=== PATIENT | male | born 1955 | race Caucasian/White ===

== ENCOUNTER → 2020-09-24 09:35 | Outpatient (BNVA) | payer MEDICARE, SELFPAY | PROVIDERS: Family Provider Family Medicine; PCP Nurse Practitioner Family; Referring Provider Nurse Practitioner Family; Visit Provider Nurse Practitioner Family | DX: N40.1 Benign prostatic hyperplasia with lower urinary tract symptoms (principal); R35.1 Nocturia; Z12.5 Encounter for screening for malignant neoplasm of prostate; R97.20 Elevated prostate specific antigen [PSA] | CPT/HCPCS: 81003; G0103 ==

== ENCOUNTER → 2020-10-12 10:26 | Outpatient (BNVA) | payer MEDICARE, SELFPAY | PROVIDERS: Family Provider Family Medicine; PCP Nurse Practitioner Family; Visit Provider Urology | DX: R97.20 Elevated prostate specific antigen [PSA] (principal); N40.1 Benign prostatic hyperplasia with lower urinary tract symptoms | CPT/HCPCS: 81003; 84153 ==

== ENCOUNTER → 2021-01-14 09:14 | Outpatient (BNVA) | payer MEDICARE, SELFPAY | PROVIDERS: Family Provider Family Medicine; PCP Nurse Practitioner Family; Visit Provider Urology | DX: N40.1 Benign prostatic hyperplasia with lower urinary tract symptoms (principal); R97.20 Elevated prostate specific antigen [PSA] | CPT/HCPCS: 81003; 84153 ==

== ENCOUNTER → 2021-08-06 08:54 | Outpatient (BNVA) | payer MEDICARE, SELFPAY | PROVIDERS: Family Provider Family Medicine; PCP Nurse Practitioner Family; Visit Provider Urology | DX: R97.20 Elevated prostate specific antigen [PSA] (principal); N40.1 Benign prostatic hyperplasia with lower urinary tract symptoms | CPT/HCPCS: 81003; 84153 ==

== ENCOUNTER → 2021-10-10 08:58 | Outpatient (BNVA) | payer MEDICARE, SELFPAY | PROVIDERS: Family Provider Family Medicine; PCP Nurse Practitioner Family; Visit Provider Urology | DX: R97.20 Elevated prostate specific antigen [PSA] (principal); N40.1 Benign prostatic hyperplasia with lower urinary tract symptoms | CPT/HCPCS: 81003; 84153 ==

== ENCOUNTER → 2022-07-01 08:19 | Outpatient (BNVA) | payer MEDICARE, SELFPAY | PROVIDERS: Family Provider Family Medicine; PCP Nurse Practitioner Family; Visit Provider Urology | DX: N40.1 Benign prostatic hyperplasia with lower urinary tract symptoms (principal); R97.20 Elevated prostate specific antigen [PSA] | CPT/HCPCS: 51798; 81003; 99213 ==

== ENCOUNTER 2023-02-23 09:00 | Outpatient (CLI) | payer MEDICARE, SELFPAY | END 2023-02-23 09:01 | disposition home or self-care (01) | LOC: SLEEP 02-24 10:51 | PROVIDERS: Family Provider Family Medicine; PCP Nurse Practitioner Family; Visit Provider Internal Medicine | DX: G47.10 Hypersomnia, unspecified (principal) | CPT/HCPCS: G0399 ==

== ENCOUNTER → 2023-04-22 08:34 | Outpatient (BNVA) | payer MEDICARE, SELFPAY | PROVIDERS: Family Provider Family Medicine; PCP Nurse Practitioner Family; Visit Provider Nurse Practitioner Family | DX: Z85.828 Personal history of other malignant neoplasm of skin (principal); L57.0 Actinic keratosis; L82.1 Other seborrheic keratosis; L57.8 Other skin changes due to chronic exposure to nonionizing radiation; D22.5 Melanocytic nevi of trunk; L81.4 Other melanin hyperpigmentation; L82.0 Inflamed seborrheic keratosis; L56.5 Disseminated superficial actinic porokeratosis (DSAP) | CPT/HCPCS: 17004; 17110; 99213 ==

== ENCOUNTER 2023-05-21 08:16 | Outpatient (CLI) | payer MEDICARE, SELFPAY ==
[2023-05-21 08:50] LABS: Basophils # 0.1 10^3/uL (0.0-0.1); Basophils % 0.7 %; Eosinophils # 0.2 10^3/uL (0.0-0.8); Eosinophils % 2.3 %; Hematocrit 41.6 % (37-53); Lymphocytes # 2.3 10^3/uL (0.8-4.8); Lymphocytes % 32.6 %; Mean Corpuscular HGB Conc 33.9 g/dL (30-55); Mean Corpuscular Hemoglobin 27.6 pg (27-33); Mean Corpuscular Volume 81.6 fl (82-101); Mean Platelet Volume 10.7 fL (7.4-10.4); Monocytes # 0.4 10^3/uL (0.2-0.9); Monocytes % 5.8 %; Neutrophils # 4.11 10^3/uL (1.8-7.7); Neutrophils % 58.3 %; Nucleated Red Blood Cells % 0 %; Platelet Count 186 10^3/cmm (157-399); Red Cell Distribution Width 13.2 % (12.1-15.1); White Blood Count 7.05 10^3/uL (3.29-11.43)
[2023-05-21 09:39] LABS: Alanine Aminotransferase 18 U/L (0-41); Albumin Level 4.5 g/dL (3.5-5.2); Alkaline Phosphatase 90 U/L (40-130); Anion Gap 15.2 (5-19); Aspartate Amino Transferase 13 U/L (0-40); Blood Urea Nitrogen 19 mg/dL (8-23); Carbon Dioxide 25 mmol/L (22-29); Chloride 106 mmol/L (98-107); Chol HDL Ratio 3.06 mg/dL (1.0-5.00); Cholesterol 98 mg/dL (0-200); Globulin 2.5 g/dL (1.3-4.6); Glomerular Filtration Rate 59.9 mL/min (90-130); Glucose 150 mg/dL (65-115); HDL Cholesterol 32 mg/dL (60-100); LDL Cholesterol Calculated 52 mg/dL (50-129); LDL HDL Ratio 1.63 RATIO (0.00-3.22); Osmolality Calculated 299 mOsm/kg (285-295); Potassium 4.2 mmol/L (3.5-5.1); Sodium 142 mmol/L (136-145); Triglycerides 69 mg/dL (0-150)
[2023-05-21 09:43] LABS: Estmated Average Glucose 134; Hemoglobin A1C 6.3 % (4.0-6.0)
== END 2023-05-21 08:17 | disposition home or self-care (01) ==
PROVIDERS: PCP Internal Medicine; Visit Provider Internal Medicine
DX: E11.9 Type 2 diabetes mellitus without complications (principal); R97.20 Elevated prostate specific antigen [PSA]; E78.5 Hyperlipidemia, unspecified
CPT/HCPCS: 80053; 80061; 83036; 84153; 85025

== ENCOUNTER 2023-10-17 17:39 | Emergency (ER) | payer MEDICARE, SELFPAY ==
[2023-10-17] VITALS (7 sets, daily range): BP systolic 129–159; BP diastolic 74–77; PULSE 68–81; RESP 16–21; TEMP 36.6; O2SAT 91–97; BMI 29.2
--- NOTE | 2023-10-17 17:55 | USR_ITS ---
PROCEDURE INFORMATION: Exam: US Abdomen, Limited; Right Upper Quadrant Exam date and time: 10/17/2023 6:21 PM Age: 68 years old Clinical indication: Abdominal pain; Acute; Additional info: Right upper quadrant pain, concern for cholecystitis TECHNIQUE: Imaging protocol: Real time ultrasound of the abdomen with image documentation. Limited exam focused on the right upper quadrant. COMPARISON: No relevant prior studies available. FINDINGS: Liver: Unremarkable. Gallbladder: Cholelithiasis without gallbladder wall thickening or pericholecystic fluid. Negative sonographic Souza's sign, as per the market research manager. Biliary ducts: Normal. No stones. No dilation. Pancreas: Unremarkable as visualized. Right kidney: No mass. No definite stones. No hydronephrosis. US/US gall bladder [id number] IMPRESSION: Cholelithiasis without sonographic evidence of acute cholecystitis.
--- NOTE | 2023-10-17 17:56 | ECG_ITS ---
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 Measurements Intervals [place] Rate: 73 P: 41 ME: 198 QRS: -12 QRSD: 101 T: 50 QT: 422 QTc: 465 Interpretive Statements SINUS RHYTHM NONSPECIFIC T-WAVE ABNORMALITY No previous ECG available for comparison Electronically Signed On 10-18-2023 20:48:23 CDT by Victorino Eid M.D. [id number]
[2023-10-17 18:10] LABS: Basophils % 0.2 %; Eosinophils % 0.1 %; Lymphocytes # 1.3 10^3/uL (0.8-4.8); Lymphocytes % 6.7 %; Mean Corpuscular Hemoglobin 28.7 pg (27-33); Mean Platelet Volume 10.1 fL (7.4-10.4); Monocytes # 0.9 10^3/uL (0.2-0.9); Neutrophils # 16.53 10^3/uL (1.8-7.7); Neutrophils % 87.4 %; Nucleated Red Blood Cells % 0 %; Platelet Count 195 10^3/cmm (157-399); Red Blood Count 5.12 10^6/uL (3.85-5.65); Red Cell Distribution Width 13.2 % (12.1-15.1); White Blood Count 18.91 10^3/uL (3.29-11.43)
--- NOTE | 2023-10-17 18:13 | ED_ITS ---
HPI - Abdominal Pain 2 General: Chief Complaint: Abdominal Pain Stated Complaint: chest pain, abd pain Time Seen by Provider: 10/17/23 17:40 History of Present Illness: 68-year-old man with history of coronary artery disease status post CABG, hypertension, hyperlipidemia, BPH who presents to the emergency room with right upper quadrant abdominal pain with some nausea. No vomiting. Radiates to his back. Has been present for about 6 hours now. He has had no abdominal surgeries. He has had a CABG in the past. No known fever. He says pain is fairly severe at this time. Review of Systems 2 Narrative: Constitutional symptoms: Negative except as documented in HPI. Skin symptoms: Negative except as documented in HPI. Eye symptoms: Negative except as documented in HPI. ENMT symptoms: Negative except as documented in HPI. Respiratory symptoms: Negative except as documented in HPI. Cardiovascular symptoms: Negative except as documented in HPI. Gastrointestinal symptoms: Negative except as documented in HPI. Genitourinary symptoms: Negative except as documented in HPI. Musculoskeletal symptoms: Negative except as documented in HPI. Neurologic symptoms: Negative except as documented in HPI. Psychiatric symptoms: Negative except as documented in HPI. Endocrine symptoms: Negative except as documented in HPI. PFS ED 2 PFSH: Medical History (Updated 10/17/23 @ 20:27 by Keeley Elena MD) ASHD (arteriosclerotic heart disease) Insomnia Bilateral plantar fasciitis Cataract Dyslipidemia Hypertension Diabetes Elevated PSA BPH loc w urin obs/LUTS Surgical History Hx of CABG Status post bilateral LASIK surgery Family History Mother Hypertension Other CAD (coronary artery disease) Social History Smoking and tobacco/nicotine status: never used tobacco/nicotine Alcohol intake: never Marital status: Current occupational status: employed Physical Exam 2 Narrative: EXAM NARRATIVE: General: Alert, no acute distress. Skin: Warm, dry. Head: Normocephalic, atraumatic. Neck: Supple, trachea midline. Eye: Extraocular movements are intact. Ears, nose, mouth and throat: mucosa moist. Cardiovascular: Regular, Normal peripheral perfusion. Respiratory: Lungs are clear to auscultation, respirations are non-labored, breath sounds are equal, Symmetrical chest wall expansion. Gastrointestinal: Soft, moderate right upper quadrant tenderness to palpation, Non distended, Normal bowel sounds. Musculoskeletal: Normal ROM, no deformity. Neurological: Alert and oriented, No focal neurological deficit observed. Psychiatric: Cooperative, appropriate mood & affect. Course 2 Vital Signs: Vital signs: Vital Signs Temperature 97.9 F 10/17/23 17:46 Pulse Rate 68 10/17/23 18:47 Respiratory Rate 17 10/17/23 19:46 Blood Pressure 129/76 10/17/23 18:47 Pulse Oximetry 94 10/17/23 19:46 Oxygen Delivery Me thod Room Air 10/17/23 17:46 MDM - Abdominal Pain Medical Decision Making Differential diagnosis for patient presenting with right upper quadrant abdominal pain including but not limited to and based on the above HPI, review of systems and physical exam: Cholelithiasis or cholecystitis. Hepatitis. Diverticulitis. Constipation. Ureterolithiasis. Urinary tract infection. Appendicitis. colitis. small bowel obstruction. crohn's flare. pancreatitis. gastritis. peptic ulcer. Aortic disection. Workup including imaging and lab work replaced based on the above differential, history and exam to evaluate differential diagnosis Lab Review: Laboratory results were reviewed and interpreted by myself the emergency room physician. Patient has some significant leukocytosis with a white count of 18,000. Hemoglobin is stable at 14. BUN and creatinine are up at 25 and 1.4. Previous creatinine was 1.2. His blood sugars are up a bit at 329. Giving some fluids. The most note on his labs is that he has a transaminitis with AST and ALT in the 300s and a T. bili greater than 3. Ultrasound of the gallbladder: FINDINGS: Liver: Unremarkable. Gallbladder: Cholelithiasis without gallbladder wall thickening or pericholecystic fluid. Negative sonographic Souza's sign, as per the infant babysitter. Biliary ducts: Normal. No stones. No dilation. Pancreas: Unremarkable as visualized. Right kidney: No mass. No definite stones. No hydronephrosis. IMPRESSION: Cholelithiasis without sonographic evidence of acute cholecystitis. Consultation: I spoke with general surgery at [facility] Dr. Saleh. With the patient having a probable common bile duct stone he recommends medicine admission with gastroenterology consultation. We do not have gastroenterology here so is why had called [facility]. Reexamination: Patient has some improvement in pain but it has recurred at least once since has been here. He is required some Dilaudid for this. No altered mental status. No increased work of breathing. Pain is still restricted just to his right upper quadrant. Lab Data 10/17/23 18:01 10/17/23 18:01 Labs/Radiology: Radiology Impressions Gallbladder Ultrasound 10/17/23 17:55 IMPRESSION: Cholelithiasis without sonographic evidence of acute cholecystitis. Laboratory Results WBC 18.91 10^3/uL (3.29-11.43) H 10/17/23 18:01 RBC 5.12 10^6/uL (3.85-5.65) 10/17/23 18:01 Hgb 14.70 g/dL (11.27-16.99) 10/17/23 18: Hct 42.0 % (37-53) 10/17/23 18:01 MCV 82.0 fl (82-101) 10/17/23 18: MCH 28.7 pg (27-33) 10/17/23 18: MCHC 35.0 g/dL (30-55) 10/17/23 18:01 RDW 13.2 % (12.1-15.1) 10/17/23 18: Plt Count 195 10^3/cmm (157-399) 10/17/23 18:01 MPV 10.1 fL (7.4-10.4) 10/17/23 18: Neut % (Auto) 87.4 % 10/17/23 18: Lymph % (Auto) 6.7 % 10/17/23 18: Brooks % (Auto) 5.0 % 10/17/23 18:01 Eos % (Auto) 0.1 % 10/17/23 18:01 Baso % (Auto) 0.2 % 10/17/23 18:01 Neut # (Auto) 16.53 10^3/uL (1.8-7.7) H 10/17/23 18:01 Lymph # (Auto) 1.3 10^3/uL (0.8-4.8) 10/17/23 18:01 Brooks # (Auto) 0.9 10^3/uL (0.2-0.9) 10/17/23 18:01 Eos # (Auto) 0.0 10^3/uL (0.0-0.8) 10/17/23 18:01 Baso # (Auto) 0.0 10^3/uL (0.0-0.1) 10/17/23 18:01 Nucleated RBC % (auto) 0 % 10/17/23 18:01 Nucleated RBCs # 0.0 /100WBC 10/17/23 18:01 Sodium 140 mmol/L (136-145) 10/17/23 18:01 Potassium 3.7 mmol/L (3.5-5.1) 10/17/23 18:01 Chloride 102 mmol/L (98-107) 10/17/23 18:01 Carbon Dioxide 25 mmol/L (22-29) 10/17/23 18:01 Anion Gap 16.7 (5-19) 10/17/23 18:01 BUN 25 mg/dL (8-23) H 10/17/23 18:01 Creatinine 1.4 mg/dL (0.7-1.2) H 10/17/23 18:01 GFR Calculation 50.1 mL/min (90-130) L 10/17/23 18:01 Glucose 329 mg/dL (65-115) H 10/17/23 18:01 Calculated Osmolality 307 mOsm/kg (285-295) H 10/17/23 18:01 Calcium 10.3 mg/dL (8.5-10.5) 10/17/23 18:01 Total Bilirubin 3.2 mg/dL (0.15-1.2) H 10/17/23 18:01 AST 287 U/L (0-40) H 10/17/23 18:01 ALT 281 U/L (0-41) H 10/17/23 18:01 Alkaline Phosphatase 231 U/L (40-130) H 10/17/23 18:01 C-Reactive Protein 3.0 mg/L (0.0-4.9) 10/17/23 18:01 Total Protein 7.0 g/dL (6.6-8.7) 10/17/23 18:01 Albumin 4.1 g/dL (3.5-5.2) 10/17/23 18:01 Globulin 2.9 g/dL (1.3-4.6) 10/17/23 18:01 Lipase > 46616 U/L (13-60) H 10/17/23 18:01 All radiology interpretation(s) finalized by discharge Other Data Assessment and plan: Cholelithiasis Probable common bile duct stone Transaminitis Hyperbilirubinemia -IV Dilaudid x 2 doses. IV Zofran. -Patient will require transfer for gastroenterology intervention for probable bile duct stone. -Given the patient's white count of 18,000 and giving Zosyn without inflammation of the gallbladder wall at this time. Likely does have early cholecystitis Hyperglycemia -Blood sugar over 300. Fluids are being given. Known diabetes Dehydration Acute on chronic renal insufficiency -Fluids are being given. Creatinine is up to 1.4 as compared to previous at 1.2. -I discussed the patient with Dr. Katharine Engel at [facility] who is excepted the patient to a floor bed. - Discussed findings and plan with patient. Answered any questions. - All laboratory values were reviewed and interpreted personally by myself, the ER physician - All imaging was reviewed and interpreted personally by myself, the ER physician. - Evaluation and treatment of this problem were appropriate in the emergency setting Discharge Plan Discharge Patient Disposition: Xfer Short-Term Hosp Clinical Impression: Biliary calculi, common bile duct, Cholelithiasis, Transaminitis, Hyperbilirubinemia, Dehydration, Acute on chronic renal insufficiency, Hyperglycemia, Type 2 diabetes mellitus Condition: Stable Referrals: Milena Cho MD [Primary Care Provider] - Coding Level of Care Code ED Install And Repair Technician for Alison Lobato
[2023-10-17] MEDS: ondansetron 2 mg/ML SDV 2 mL 8 MG IVP (18:23)
[2023-10-17] MEDS: HYDROmorphone 1 mg/mL INJ 1 mL IVP ×3 (18:25→22:03)
[2023-10-17 18:28] LABS: Alanine Aminotransferase 281 U/L (0-41); Albumin Level 4.1 g/dL (3.5-5.2); Alkaline Phosphatase 231 U/L (40-130); Anion Gap 16.7 (5-19); Aspartate Amino Transferase 287 U/L (0-40); Blood Urea Nitrogen 25 mg/dL (8-23); Calcium 10.3 mg/dL (8.5-10.5); Carbon Dioxide 25 mmol/L (22-29); Chloride 102 mmol/L (98-107); Creatinine Clr Calc Pharmacy 59.5489; Globulin 2.9 g/dL (1.3-4.6); Glomerular Filtration Rate 50.1 mL/min (90-130); Glucose 329 mg/dL (65-115); Osmolality Calculated 307 mOsm/kg (285-295); Potassium 3.7 mmol/L (3.5-5.1); Sodium 140 mmol/L (136-145); Total Bilirubin 3.2 mg/dL (0.15-1.2)
[2023-10-17 19:00] LABS: Lipase > 11501 U/L (13-60)
[2023-10-17] MEDS: sodium chloride 0.9% 1,000 ML 999 ML IV (19:45)
[2023-10-17] MEDS: piperacillin-tazobactam 4.5 GM in sodium chloride 0.9% (plus) 50 ML IV (19:47)
--- NOTE | 2023-10-17 21:40 | PC.NURSE ---
Patient requesting pain medication. Rates pain at 7/10 at this time. Per verbal order Dr nance- give 1mg ivp dilaudid and can repeat when ems arrives for transfer. RBVO and placed.
[2023-10-18] VITALS: BP 144/88; PULSE 82; RESP 14; O2SAT 95
[2023-10-18 00:30] VITALS: BP 157/80; PULSE 86; RESP 16; O2SAT 96
[2023-10-18] MEDS: ketorolac 30 mg/mL INJ IVP (00:32)
[2023-10-18 00:35] VITALS: RESP 16
[2023-10-18] MEDS: HYDROmorphone 1 mg/mL INJ 1 mL IVP (00:35)
[2023-10-18 01:45] VITALS: RESP 16
[2023-10-18] MEDS: morphine 4 mg/mL SDV 1 mL IVP (01:45)
[2023-10-18 01:49] VITALS: BP 146/68; O2SAT 97
[2023-10-18] MEDS: ondansetron 2 mg/ML SDV 2 mL 4 MG IVP (01:49)
== END 2023-10-18 01:53 | disposition short-term general hospital (02) ==
PROVIDERS: Emergency Provider Emergency Medicine; PCP Internal Medicine
DX: K80.70 Calculus of gallbladder and bile duct without cholecystitis without obstruction (principal); R74.01 Elevation of levels of liver transaminase levels; E80.6 Other disorders of bilirubin metabolism; E86.0 Dehydration; E11.22 Type 2 diabetes mellitus with diabetic chronic kidney disease; I12.9 Hypertensive chronic kidney disease with stage 1 through stage 4 chronic kidney disease, or unspecified chronic kidney disease; N18.9 Chronic kidney disease, unspecified; E11.65 Type 2 diabetes mellitus with hyperglycemia; Z79.85 Long-term (current) use of injectable non-insulin antidiabetic drugs; E78.5 Hyperlipidemia, unspecified; Z95.1 Presence of aortocoronary bypass graft
CPT/HCPCS: 76705; 80053; 83690; 85025; 86140; 93005; 96365; 96375; 96376; 99285; J1170; J1885; J2270; J2405; J2543; J7030

== ENCOUNTER 2023-11-02 09:58 | Outpatient (CLI) | payer MEDICARE, SELFPAY ==
[2023-11-02 10:40] LABS: Basophils % 0.1 %; Eosinophils % 0.1 %; Lymphocytes # 0.9 10^3/uL (0.8-4.8); Lymphocytes % 5.9 %; Mean Corpuscular HGB Conc 33.4 g/dL (30-55); Mean Corpuscular Hemoglobin 28.3 pg (27-33); Mean Corpuscular Volume 84.5 fl (82-101); Mean Platelet Volume 10.3 fL (7.4-10.4); Monocytes # 0.6 10^3/uL (0.2-0.9); Monocytes % 4.1 %; Nucleated Red Blood Cells % 0 %; Platelet Count 286 10^3/cmm (157-399); Red Blood Count 4.14 10^6/uL (3.85-5.65); Red Cell Distribution Width 13.3 % (12.1-15.1); White Blood Count 15.71 10^3/uL (3.29-11.43)
[2023-11-02 11:12] LABS: Alanine Aminotransferase 37 U/L (0-41); Alkaline Phosphatase 158 U/L (40-130); Anion Gap 13.4 (5-19); Aspartate Amino Transferase 17 U/L (0-40); Blood Urea Nitrogen 20 mg/dL (8-23); Calcium 9.8 mg/dL (8.5-10.5); Carbon Dioxide 24 mmol/L (22-29); Chloride 101 mmol/L (98-107); Globulin 3.1 g/dL (1.3-4.6); Glomerular Filtration Rate 54.6 mL/min (90-130); Glucose 279 mg/dL (65-115); Lipase 61 U/L (13-60); Osmolality Calculated 291 mOsm/kg (285-295); Potassium 4.4 mmol/L (3.5-5.1); Sodium 134 mmol/L (136-145); Total Bilirubin 0.7 mg/dL (0.15-1.2); Total Protein 6.1 g/dL (6.6-8.7)
[2023-11-02 11:15] LABS: Digoxin 1.3 ng/mL (0.6-1.2)
[2023-11-02 11:23] LABS: Erythrocyte Sedimentation Rate 14 mm/hr (0-10)
[2023-11-03 07:10] LABS: Amylase 63 U/L (21-101)
== END 2023-11-02 09:59 | disposition home or self-care (01) ==
LOC: LAB 10:00
PROVIDERS: PCP Internal Medicine; Visit Provider Internal Medicine
DX: Z51.81 Encounter for therapeutic drug level monitoring (principal)
CPT/HCPCS: 36415; 80053; 80162; 82150; 83690; 85025; 85651

== ENCOUNTER 2023-11-03 04:00 | Emergency (ER) | payer MEDICARE, SELFPAY ==
[2023-11-03] VITALS (12 sets, daily range): BP systolic 117–149; BP diastolic 59–75; PULSE 68–102; RESP 16–29; TEMP 36.6–38.2; O2SAT 92–98; BMI 29.1
--- NOTE | 2023-11-03 04:07 | W.ED.ARRPALP ---
Documented by User: Eber Flanagan DO 11/03/23 05:47 HPI - Arrhythmia/Palpitations General: Chief Complaint: Fever Stated Complaint: feeling flushed Time Seen by Provider: 11/03/23 04:06 History of Present Illness: Patient presents to the ER with complaints of feeling flushed and having a irregular heart rate. EMS stated heart rate was about 100 1020 beats a minute irregularly in A-fib with RVR type pattern. Patient says he started feeling flushed when he woke up. Patient was just released from [place] about a week ago on 10/24 for diagnosis of pancreatitis with reactive dilation of the biliary system and improving hepatorenal syndrome. He was on Zosyn the entire time he was in the hospital and sent home with 3 days of Augmentin. Patient developed A-fib and CHF while he was in the hospital down there and they did not remove his gallbladder. Patient went home with medicine changes. Dr. Cherry ran labs on the patient yesterday through [email or web address] labs. Patient is currently on Eliquis for A-fib. Patient's family said they started him on Lasix in the hospital and he is currently down 29 pounds. Review of Systems General: Reports: 10 or more systems reviewed and unremarkable except in HPI and below PFSH ED PFSH: Medical History ASHD (arteriosclerotic heart disease) Insomnia Bilateral plantar fasciitis Cataract Dyslipidemia Hypertension Diabetes Elevated PSA BPH loc w urin obs/LUTS Surgical History Hx of CABG Status post bilateral LASIK surgery Family History Mother Hypertension Other CAD (coronary artery disease) Social History Smoking and tobacco/nicotine status: never used tobacco/nicotine Alcohol intake: never Marital status: Current occupational status: employed Physical Exam Const: COMMON NORMALS: no acute distress, average body habitus, patient oriented x3, no limitations, healthy appearing, alert and well nourished HENMT: COMMON NORMALS: normocephalic, atraumatic, hearing grossly normal bilaterally, external ears normal, Normal external nose present, moist oral mucous membranes and oropharynx normal HEAD & SCALP: normocephalic and atraumatic NOSE: Normal external nose present EXTERNAL EAR: Yes external ears normal Neck/C-Spine: COMMON NORMALS: no JVD Chest: COMMONS NORMALS: normal inspection of the chest and normal palpation of entire chest wall Resp: COMMON NORMALS: normal respiratory effort, No retractions, No use of accessory muscles and clear to auscultation bilaterally AUSCULTATION: clear to auscultation bilaterally Cardio: COMMON NORMALS: no JVD, regular rate, regular rhythm, S1 normal heart sound present, S2 normal heart sound present, No gallops present (Cardio), No clicks present (Cardio), No murmurs present (Cardio) and No rub (Cardio) RATE: regular rate RHYTHM: regular rhythm HEART SOUNDS: S1 normal heart sound present and S2 normal heart sound present GI: COMMON NORMALS: Normal to inspection, nondistended, normoactive bowel sounds present, Soft to palpation and No hepatosplenomegaly present; negative for non-tender (Tender to palpate over right upper quadrant) PALPATION: Yes Soft to palpation and Yes No hepatosplenomegaly present Neuro: COMMON NORMALS: patient oriented x3 SENSORIUM/ORIENTATION: Yes alert Course Vital Signs: Vital signs: Vital Signs Temperature 97.8 F 11/03/23 07:41 Pulse Rate 84 11/03/23 06:46 Respiratory Rate 23 H 11/03/23 06:46 Blood Pressure 122/66 11/03/23 06:46 Pulse Oximetry 93 11/03/23 06:46 Oxygen Delivery Me thod Room Air 11/03/23 05:50 MDM - Arrhythmia/Palpitations Medical Decision Making Talking to the daughters Dr. Cherry raise his metoprolol yesterday from 12.525 twice daily, patient is on Eliquis, patient has appointment with the legal transcriptionist down in [place] but not until the we will try to get him appointment for her sooner. Patient's white count is mildly elevated at 18.3 yesterday was approximately 15, chest x-ray was negative as well as urine, liver enzymes and pancreas enzymes are normal. We will discharge the patient and patient should follow-up with his PCP on an as-needed basis. Differential Diagnosis Likely palpitations and artial fibrillation Medical Records I reviewed the patient's medical records. Lab Data I reviewed the patient's lab results. 11/03/23 04:09 11/03/23 04:09 Radiology Impressions Chest X-Ray 11/03/23 04:11 IMPRESSION: 1. Left basilar discoid atelectasis and/or scarring. 2. No acute findings. Laboratory Results WBC 18.30 10^3/uL (3.29-11.43) H 11/03/23 04:09 RBC 4.02 10^6/uL (3.85-5.65) 11/03/23 04:09 Hgb 11.40 g/dL (11.27-16.99) 11/03/23 04:09 Hct 33.0 % (37-53) L 11/03/23 04:09 MCV 82.1 fl (82-101) 11/03/23 04:09 MCH 28.4 pg (27-33) 11/03/23 04:09 MCHC 34.5 g/dL (30-55) 11/03/23 04:09 RDW 13.5 % (12.1-15.1) 11/03/23 04:09 Plt Count 284 10^3/cmm (157-399) 11/03/23 04:09 MPV 10.5 fL (7.4-10.4) H 11/03/23 04:09 Neut % (Auto) 96.0 % 11/03/23 04:09 Lymph % (Auto) 1.7 % 11/03/23 04:09 [place] % (Auto) 1.6 % 11/03/23 04:09 Eos % (Auto) 0.0 % 11/03/23 04:09 Baso % (Auto) 0.1 % 11/03/23 04:09 Neut # (Auto) 17.57 10^3/uL (1.8-7.7) H 11/03/23 04:09 Lymph # (Auto) 0.3 10^3/uL (0.8-4.8) L 11/03/23 04:09 [place] # (Auto) 0.3 10^3/uL (0.2-0.9) 11/03/23 04:09 Eos # (Auto) 0.0 10^3/uL (0.0-0.8) 11/03/23 04:09 Baso # (Auto) 0.0 10^3/uL (0.0-0.1) 11/03/23 04:09 Nucleated RBC % (auto) 0 % 11/03/23 04:09 Nucleated RBCs # 0.0 /100WBC 11/03/23 04:09 PT 18.80 SECONDS (12.1-14.9) H 11/03/23 04:09 INR 1.52 (0.8-1.2) H 11/03/23 04:09 Sodium 131 mmol/L (136-145) L 11/03/23 04:09 Potassium 3.8 mmol/L (3.5-5.1) 11/03/23 04:09 Chloride 99 mmol/L (98-107) 11/03/23 04:09 Carbon Dioxide 18 mmol/L (22-29) L 11/03/23 04:09 Anion Gap 17.8 (5-19) 11/03/23 04:09 BUN 21 mg/dL (8-23) 11/03/23 04:09 Creatinine 1.4 mg/dL (0.7-1.2) H 11/03/23 04:09 GFR Calculation 50.1 mL/min (90-130) L 11/03/23 04:09 Glucose 331 mg/dL (65-115) H 11/03/23 04:09 Calculated Osmolality 288 mOsm/kg (285-295) 11/03/23 04:09 Lactic Acid 2.4 mmol/L (0.5-2.2) H 11/03/23 04:26 Lactic Acid (Sepsis) 1.4 mmol/L (0.5-2.2) 11/03/23 06:32 Calcium 10.0 mg/dL (8.5-10.5) 11/03/23 04:09 Magnesium 1.5 mg/dL (1.7-2.3) L 11/03/23 04:09 Total Bilirubin 1.1 mg/dL (0.15-1.2) 11/03/23 04:09 AST 11 U/L (0-40) 11/03/23 04:09 ALT 28 U/L (0-41) 11/03/23 04:09 Alkaline Phosphatase 135 U/L (40-130) H 11/03/23 04:09 Troponin T Baseline 33 ng/L (0-15) H 11/03/23 04:09 Troponin T 120 Minute 52.96 ng/L (0-15) H 11/03/23 05:50 Delta Troponin T 19.96 ABS# (0-10) H* 11/03/23 05:50 NT-Pro-B Natriuret Pep 2379 pg/mL (0-125) H 11/03/23 04:09 Total Protein 6.0 g/dL (6.6-8.7) L 11/03/23 04:09 Albumin 2.9 g/dL (3.5-5.2) L 11/03/23 04:09 Globulin 3.1 g/dL (1.3-4.6) 11/03/23 04:09 Lipase 48 U/L (13-60) 11/03/23 04:09 Procalcitonin 0.70 ng/mL (0-0.5) H 11/03/23 04:09 Urine Color Yellow (Yellow) 11/03/23 04:15 Urine Appearance Clear (CLEAR) 11/03/23 04:15 Urine pH 5 (5-7) 11/03/23 04:15 Ur Specific [place] 1.015 (1.005-1.030) 11/03/23 04:15 Urine Protein 2+ (Negative) H 11/03/23 04:15 Urine Glucose (UA) 4+ (Normal) H 11/03/23 04:15 Urine Ketones Negative (Negative) 11/03/23 04:15 Urine Blood 2+ (Negative) H 11/03/23 04:15 Urine Nitrate Negative (Negative) 11/03/23 04:15 Urine Bilirubin Neg (Negative) 11/03/23 04:15 Urine Urobilinogen Neg mg/dL (Negative) 11/03/23 04:15 Ur Leukocyte Esterase Negative (Negative) 11/03/23 04:15 Urine RBC 0-4 /hpf (0-2) H 11/03/23 04:15 Urine WBC 0-4 /hpf (0-5) H 11/03/23 04:15 Ur Squamous Epith Cells None /hpf (0-5) 11/03/23 04:15 Amorphous Sediment Not Reportable 11/03/23 04:15 Urine Bacteria Trace /hpf (NONE) 11/03/23 04:15 Urine Mucus 1+ /hpf 11/03/23 04:15 Digoxin 0.3 ng/mL (0.6-1.2) L 11/03/23 04:09 Influenza Type A Ag negative (Negative) 11/03/23 04:26 Influenza Type B Ag negative (Negative) 11/03/23 04:26 SARS-CoV-2 Ag (Rapid) negative (Negative) 11/03/23 04:26 All radiology interpretation(s) finalized by discharge EKG Data EKG 1: I personally reviewed and interpreted this EKG as follows: EKG interpretation date: 11/03/23 EKG interpretation time: 04: Interpretation: Ventricular 113 beats minute, QRS duration 90, QTc of 425, A-fib with RVR, Other EKG comments: Chest X-Ray 11/03/23 04:11 IMPRESSION: 1. Left basilar discoid atelectasis and/or scarring. 2. No acute findings. Discharge Plan Discharge Patient Disposition: Admitted As Inpatient Clinical Impression: Sepsis, Fever of unknown origin, Atrial fibrillation with rapid ventricular response, CHF (congestive heart failure), Elevated troponin I level Condition: Stable Prescriptions: No Action hydrochlorothiazide 12.5 mg tablet 12.5 mg PO DAILY PRN metoprolol tartrate 25 mg tablet 25 mg PO DAILY amlodipine 10 mg tablet 10 mg PO DAILY famotidine 20 mg tablet 20 mg PO DAILY PRN saw palmetto 450 mg capsule 450 mg PO TID Rx Instructions: give with food (meal/snack) magnesium oxide 420 mg tablet 420 mg PO DAILY tamsulosin 0.4 mg capsule 0.4 mg PO DAILY burnidine PO DAILY valsartan 160 mg tablet 160 mg PO DAILY atorvastatin 40 mg tablet 40 mg PO DAILY Referrals: Milena hCo MD [Primary Care Provider] - 1 week Patient Instructions: Fever - Adult, Heart Failure (ED), A-fib (Atrial Fibrillation) (ED) Activity Restrictions/Additional Instructions: Your case has been referred to case management for a cardiology appointment. They should be calling you today to help schedule appointment. Blood cultures have been drawn they will show if there is any infection in your blood however they take 2 to 3 days to get the results. If any treatment is needed you will be called and informed of the treatment. Otherwise please follow-up with your family practice physician within the next 7 days for further evaluation and treatment. Please continue to double up your metoprolol as Dr. Cherry change her dose yesterday. Coding Level of Care Code ED Ceramic Engineer for Chg Fwd Documented by User: Ramon Pastor DO 11/03/23 07:57 HPI - Arrhythmia/Palpitations General: Chief Complaint: Fever Stated Complaint: feeling flushed Time Seen by Provider: 11/03/23 04:06 History of Present Illness: Patient presents to the ER with complaints of feeling flushed and having a irregular heart rate. EMS stated heart rate was about 100 1020 beats a minute irregularly in A-fib with RVR type pattern. Patient says he started feeling flushed when he woke up. Patient was just released from [place] about a week ago on 10/24 for diagnosis of pancreatitis with reactive dilation of the biliary system and improving hepatorenal syndrome. He was on Zosyn the entire time he was in the hospital and sent home with 3 days of Augmentin. Patient developed A-fib and CHF while he was in the hospital down there and they did not remove his gallbladder. Patient went home with medicine changes. Dr. Cherry ran labs on the patient yesterday through [facility]. Patient is currently on Eliquis for A-fib. Patient's family said they started him on Lasix in the hospital and he is currently down 29 pounds. Care assumed at change of shift reviewing the chart patient has fever with initial lactate of 2.4 white count of 18,000 mild lymphocytopenia. He was recently hospitalized for cholecystitis pancreatitis there was a concern he had choledocholithiasis he was transferred to [place] ERCP was not done according to the family he was treated empirically for cholecystitis and pancreatitis during the course of that hospitalization patient developed atrial fibrillation. This morning he awoke was not feeling well and began to have a fever family reports his heart rate was up to 180s at home. In addition to this he was recently seen by his primary care doctor and started on Lasix they reported a significant weight loss since the diuresis was started a week ago (-29 pounds). Family also reports that while he was in the hospital at [place] he had an echocardiogram done after the episode of atrial fibrillation showed an ejection fraction reported of 30 to 35%. He was started on Eliquis. He denies any dysuria but has a difficult time starting his urine this has been a chronic problem and he is on tamsulosin and finasteride for BPH. He has had some acholic diarrhea but denies any he hematochezia or melena. No vomiting or diarrhea he does have some mild right upper quadrant discomfort this morning. He does have sleep apnea but he does not tolerate his CPAP so has not been using it at night while he was in the emergency room he desatted to the mid 80s and is currently on 2 L/min sitting at 45 degrees in bed. Without oxygen supplementation he is in the low 90s consistently. His dig level on 11/01 was 1.3. Urine this morning showed 4+ glucose but did not shows any signs of cystitis. Procalcitonin was slightly elevated this morning. EKG initially showed A-fib with rapid ventricular response the rate was around [address] was [address] significant [address] changes. Repeat EKG when I assumed care of the patient was in the 90s with no significant changes but there is a positive delta troponin of +19 complaint: atrial fibrillation Onset (ago): hour(s) Duration: constant Context: occurred during rest Arrhythmia history: atrial fibrillation Associated symptoms: Reports short of breath Review of Systems Const: Denies: fever(s) or chills Card: Denies: chest pain Resp: Denies: dyspnea GI: Denies: abdominal pain : Denies: dysuria, urinary frequency or urinary urgency Musc: Denies: neck pain or back pain Skin/Breast: Denies: rash [facility] ED PFSH: Medical History ASHD (arteriosclerotic heart disease) Insomnia Bilateral plantar fasciitis Cataract Dyslipidemia Hypertension Diabetes Elevated PSA BPH loc w urin obs/LUTS Surgical History Hx of CABG Status post bilateral LASIK surgery Family History Mother Hypertension Other CAD (coronary artery disease) Social History Smoking and tobacco/nicotine status: never used tobacco/nicotine Alcohol intake: never Marital status: Current occupational status: employed Physical Exam Const: GENERAL APPEARANCE: cooperative and comfortable ORIENTATION/CONSCIOUSNESS: Yes awake, Yes oriented to person, Yes oriented to place and Yes oriented to time HENMT: COMMON NORMALS: normocephalic, atraumatic and hearing grossly normal bilaterally HEAD & SCALP: normocephalic and atraumatic Resp: COMMON NORMALS: normal respiratory effort, No retractions and No use of accessory muscles AUSCULTATION: crackles Laterality: bilateral (At the bases) Cardio: COMMON NORMALS: No murmurs present (Cardio) RHYTHM: abnormal rhythm irregularly irregular GI: COMMON NORMALS: No hepatosplenomegaly present AUSCULTATION: Yes normoactive bowel sounds PALPATION: Yes Tenderness to palpation present (GI) Details: RUQ, No Guarding due to palpation present (GI) and Yes No hepatosplenomegaly present Extremity: COMMON NORMALS: normal to inspection, capillary refill normal, no clubbing, cyanosis or edema, no calf tenderness and no pedal edema Neuro: SENSORIUM/ORIENTATION: Yes oriented to person, Yes oriented to place and Yes oriented to time Skin: COMMON NORMALS: no rashes or lesions noted GENERAL SKIN EXAM: no rashes or lesions noted Course Vital Signs: Vital signs: Vital Signs Temperature 97.8 F 11/03/23 07:41 Pulse Rate 84 11/03/23 06:46 Respiratory Rate 23 H 11/03/23 06:46 Blood Pressure 122/66 11/03/23 06:46 Pulse Oximetry 93 11/03/23 06:46 Oxygen Delivery Me thod Room Air 11/03/23 05:50 MDM - Arrhythmia/Palpitations Medical Decision Making Talking to the daughters Dr. Cherry raise his metoprolol yesterday from 12.525 twice daily, patient is on Eliquis, patient has appointment with the legal transcriptionist down in [place] but not until the we will try to get him appointment for her sooner. Patient's white count is mildly elevated at 18.3 yesterday was approximately 15, chest x-ray was negative as well as urine, liver enzymes and pancreas enzymes are normal. We will discharge the patient and patient should follow-up with his PCP on an as-needed basis. Patient is afebrile white count 18,000 elevated troponin. Second lactic acid had decreased. There is no focal sign of infection at this time. CT of his abdomen is done results pending. Given his overall recent hospitalizations multiple complicated medical problems we will admit with signs of sepsis. Prophylactically has been given Zosyn. Discussed with hospitalist. Will place him on cardiac stepdown. Old records from [place] ordered as well. Medical Records I reviewed the patient's medical records. Lab Data I reviewed the patient's lab results. 11/03/23 04:09 11/03/23 04:09 Radiology Impressions Chest X-Ray 11/03/23 04:11 IMPRESSION: 1. Left basilar discoid atelectasis and/or scarring. 2. No acute findings. Laboratory Results WBC 18.30 10^3/uL (3.29-11.43) H 11/03/23 04:09 RBC 4.02 10^6/uL (3.85-5.65) 11/03/23 04:09 Hgb 11.40 g/dL (11.27-16.99) 11/03/23 04:09 Hct 33.0 % (37-53) L 11/03/23 04:09 MCV 82.1 fl (82-101) 11/03/23 04:09 MCH 28.4 pg (27-33) 11/03/23 04:09 MCHC 34.5 g/dL (30-55) 11/03/23 04:09 RDW 13.5 % (12.1-15.1) 11/03/23 04:09 Plt Count 284 10^3/cmm (157-399) 11/03/23 04:09 MPV 10.5 fL (7.4-10.4) H 11/03/23 04:09 Neut % (Auto) 96.0 % 11/03/23 04:09 Lymph % (Auto) 1.7 % 11/03/23 04:09 [place] % (Auto) 1.6 % 11/03/23 04:09 Eos % (Auto) 0.0 % 11/03/23 04:09 Baso % (Auto) 0.1 % 11/03/23 04:09 Neut # (Auto) 17.57 10^3/uL (1.8-7.7) H 11/03/23 04:09 Lymph # (Auto) 0.3 10^3/uL (0.8-4.8) L 11/03/23 04:09 [place] # (Auto) 0.3 10^3/uL (0.2-0.9) 11/03/23 04:09 Eos # (Auto) 0.0 10^3/uL (0.0-0.8) 11/03/23 04:09 Baso # (Auto) 0.0 10^3/uL (0.0-0.1) 11/03/23 04:09 Nucleated RBC % (auto) 0 % 11/03/23 04:09 Nucleated RBCs # 0.0 /100WBC 11/03/23 04:09 PT 18.80 SECONDS (12.1-14.9) H 11/03/23 04:09 INR 1.52 (0.8-1.2) H 11/03/23 04:09 Sodium 131 mmol/L (136-145) L 11/03/23 04:09 Potassium 3.8 mmol/L (3.5-5.1) 11/03/23 04:09 Chloride 99 mmol/L (98-107) 11/03/23 04:09 Carbon Dioxide 18 mmol/L (22-29) L 11/03/23 04:09 Anion Gap 17.8 (5-19) 11/03/23 04:09 BUN 21 mg/dL (8-23) 11/03/23 04:09 Creatinine 1.4 mg/dL (0.7-1.2) H 11/03/23 04:09 GFR Calculation 50.1 mL/min (90-130) L 11/03/23 04:09 Glucose 331 mg/dL (65-115) H 11/03/23 04:09 Calculated Osmolality 288 mOsm/kg (285-295) 11/03/23 04:09 Lactic Acid 2.4 mmol/L (0.5-2.2) H 11/03/23 04:26 Lactic Acid (Sepsis) 1.4 mmol/L (0.5-2.2) 11/03/23 06:32 Calcium 10.0 mg/dL (8.5-10.5) 11/03/23 04:09 Magnesium 1.5 mg/dL (1.7-2.3) L 11/03/23 04:09 Total Bilirubin 1.1 mg/dL (0.15-1.2) 11/03/23 04:09 AST 11 U/L (0-40) 11/03/23 04:09 ALT 28 U/L (0-41) 11/03/23 04:09 Alkaline Phosphatase 135 U/L (40-130) H 11/03/23 04:09 Troponin T Baseline 33 ng/L (0-15) H 11/03/23 04:09 Troponin T 120 Minute 52.96 ng/L (0-15) H 11/03/23 05:50 Delta Troponin T 19.96 ABS# (0-10) H* 11/03/23 05:50 NT-Pro-B Natriuret Pep 2379 pg/mL (0-125) H 11/03/23 04:09 Total Protein 6.0 g/dL (6.6-8.7) L 11/03/23 04:09 Albumin 2.9 g/dL (3.5-5.2) L 11/03/23 04:09 Globulin 3.1 g/dL (1.3-4.6) 11/03/23 04:09 Lipase 48 U/L (13-60) 11/03/23 04:09 Procalcitonin 0.70 ng/mL (0-0.5) H 11/03/23 04:09 Urine Color Yellow (Yellow) 11/03/23 04:15 Urine Appearance Clear (CLEAR) 11/03/23 04:15 Urine pH 5 (5-7) 11/03/23 04:15 Ur Specific [place] 1.015 (1.005-1.030) 11/03/23 04:15 Urine Protein 2+ (Negative) H 11/03/23 04:15 Urine Glucose (UA) 4+ (Normal) H 11/03/23 04:15 Urine Ketones Negative (Negative) 11/03/23 04:15 Urine Blood 2+ (Negative) H 11/03/23 04:15 Urine Nitrate Negative (Negative) 11/03/23 04:15 Urine Bilirubin Neg (Negative) 11/03/23 04:15 Urine Urobilinogen Neg mg/dL (Negative) 11/03/23 04:15 Ur Leukocyte Esterase Negative (Negative) 11/03/23 04:15 Urine RBC 0-4 /hpf (0-2) H 11/03/23 04:15 Urine WBC 0-4 /hpf (0-5) H 11/03/23 04:15 Ur Squamous Epith Cells None /hpf (0-5) 11/03/23 04:15 Amorphous Sediment Not Reportable 11/03/23 04:15 Urine Bacteria Trace /hpf (NONE) 11/03/23 04:15 Urine Mucus 1+ /hpf 11/03/23 04:15 Digoxin 0.3 ng/mL (0.6-1.2) L 11/03/23 04:09 Influenza Type A Ag negative (Negative) 11/03/23 04:26 Influenza Type B Ag negative (Negative) 11/03/23 04:26 SARS-CoV-2 Ag (Rapid) negative (Negative) 11/03/23 04:26 EKG Data EKG 1: Other EKG comments: Chest X-Ray 11/03/23 04:11 IMPRESSION: 1. Left basilar discoid atelectasis and/or scarring. 2. No acute findings. Discharge Plan Discharge Patient Disposition: Admitted As Inpatient Clinical Impression: Sepsis, Fever of unknown origin, Atrial fibrillation with rapid ventricular response, CHF (congestive heart failure), Elevated troponin I level Condition: Stable Prescriptions: No Action hydrochlorothiazide 12.5 mg tablet 12.5 mg PO DAILY PRN metoprolol tartrate 25 mg tablet 25 mg PO DAILY amlodipine 10 mg tablet 10 mg PO DAILY famotidine 20 mg tablet 20 mg PO DAILY PRN saw palmetto 450 mg capsule 450 mg PO TID Rx Instructions: give with food (meal/snack) magnesium oxide 420 mg tablet 420 mg PO DAILY tamsulosin 0.4 mg capsule 0.4 mg PO DAILY burnidine PO DAILY valsartan 160 mg tablet 160 mg PO DAILY atorvastatin 40 mg tablet 40 mg PO DAILY Referrals: Milena Cho MD [Primary Care Provider] - 1 week Patient Instructions: Fever - Adult, Heart Failure (ED), A-fib (Atrial Fibrillation) (ED) Activity Restrictions/Additional Instructions: Your case has been referred to case management for a cardiology appointment. They should be calling you today to help schedule appointment. Blood cultures have been drawn they will show if there is any infection in your blood however they take 2 to 3 days to get the results. If any treatment is needed you will be called and informed of the treatment. Otherwise please follow-up with your family practice physician within the next 7 days for further evaluation and treatment. Please continue to double up your metoprolol as Dr. Cherry change her dose yesterday. Coding Level of Care Code ED Ceramic Engineer for Alison Lobato
--- NOTE | 2023-11-03 04:11 | ECG_ITS ---
[facility] Test Date: 2023-11-03 Pat Name: Theo Krishna Department: Room: Gender: Male Nursing Clinical Director: : 1955 Requested By: Eber Flanagan Order Number: [id number] Camelia MD: Aris Lu M.D. Measurements Intervals [place] Rate: 113 P: 0 VT: 0 QRS: -14 QRSD: 90 T: 22 QT: 358 QTc: 491 Interpretive Statements ATRIAL FIBRILLATION WITH RAPID VENTRICULAR RESPONSE POSSIBLE RIGHT VENTRICULAR CONDUCTION DELAY [RSR (QR) IN V1/V2] MODERATE VOLTAGE CRITERIA FOR LVH, CONSIDER NORMAL VARIANT [MEETS CRITERIA IN ONE OF: R(aVL), S(V1), R(V5), R(V5/V6)+S(V1)] MODERATE ST DEPRESSION [0.05+ mV ST DEPRESSION] Compared to ECG 10/17/2023 21:00:32 ST (T wave) deviation now present Sinus rhythm no longer present T-wave abnormality no longer present Electronically Signed On 11-03-2023 17:19:35 CDT by Aris Lu M.D. [id number]
--- NOTE | 2023-11-03 04:11 | XRR_ITS ---
PROCEDURE INFORMATION: Exam: XR Chest Exam date and time: 11/03/2023 4:18 AM Age: 68 years old Clinical indication: Other: Palpitations; Prior surgery; Surgery date: 6+ months; Surgery type: Cabg TECHNIQUE: Imaging protocol: Radiologic exam of the chest. Views: 1 view. COMPARISON: No relevant prior studies available. FINDINGS: Lungs: Left basilar discoid atelectasis and/or scarring. Pleural spaces: Unremarkable. No pleural effusion. No pneumothorax. Heart/Mediastinum: Unremarkable. No cardiomegaly. Bones/joints: Previous sternotomy. XR/XR chest 1V portable [id number] IMPRESSION: 1. Left basilar discoid atelectasis and/or scarring. 2. No acute findings.
[2023-11-03 04:18] LABS: Basophils % 0.1 %; Lymphocytes # 0.3 10^3/uL (0.8-4.8); Lymphocytes % 1.7 %; Mean Corpuscular HGB Conc 34.5 g/dL (30-55); Mean Corpuscular Hemoglobin 28.4 pg (27-33); Mean Corpuscular Volume 82.1 fl (82-101); Mean Platelet Volume 10.5 fL (7.4-10.4); Monocytes # 0.3 10^3/uL (0.2-0.9); Monocytes % 1.6 %; Neutrophils # 17.57 10^3/uL (1.8-7.7); Nucleated Red Blood Cells % 0 %; Platelet Count 284 10^3/cmm (157-399); Red Blood Count 4.02 10^6/uL (3.85-5.65); Red Cell Distribution Width 13.5 % (12.1-15.1)
[2023-11-03] MEDS: acetaminophen 500 mg Tablet 1000 MG PO (04:20)
[2023-11-03] MEDS: dilTIAZem 5 mg/mL SDV 5 mL 10 MG IVP (04:21)
[2023-11-03 04:33] LABS: Troponin(5th) Baseline 33 ng/L (0-15)
[2023-11-03 04:38] LABS: INR 1.52 (0.8-1.2)
[2023-11-03 04:40] LABS: Glucose Urine UA 4+ (Normal); Protein Urine 2+ (Negative); Specific Gravity, Urine 1.015 (1.005-1.030); Urine Appearance Clear (CLEAR); Urine Color Yellow (Yellow); pH Urine 5 (5-7)
[2023-11-03 04:41] LABS: Add Urine Culture? No; Add Urine Microscopic? YES; Bacteria Urine TRACE /hpf; Bilirubin Urine Neg (Negative); Blood Urine 2+ (Negative); Ketones Urine Negative (Negative); Leukocyte Esterase Urine Negative (Negative); Mucus Urine 1+ /hpf; Nitrate Urine Negative (Negative); RBC Urine 0-4 /hpf (0-2); Urobilinogen Urine Neg (Negative); WBC Urine 0-4 /hpf (0-5)
[2023-11-03 04:42] LABS: NT Pro B Type Natriuretic Pept 2379 pg/mL (0-125)
[2023-11-03 04:50] LABS: Lactic Sepsis W/Reflex 2.4 mmol/L (0.5-2.2)
[2023-11-03 04:54] LABS: Alanine Aminotransferase 28 U/L (0-41); Albumin Level 2.9 g/dL (3.5-5.2); Alkaline Phosphatase 135 U/L (40-130); Anion Gap 17.8 (5-19); Aspartate Amino Transferase 11 U/L (0-40); Blood Urea Nitrogen 21 mg/dL (8-23); Carbon Dioxide 18 mmol/L (22-29); Chloride 99 mmol/L (98-107); Creatinine Clr Calc Pharmacy 59.4228; Globulin 3.1 g/dL (1.3-4.6); Glomerular Filtration Rate 50.1 mL/min (90-130); Glucose 331 mg/dL (65-115); Magnesium 1.5 mg/dL (1.7-2.3); Osmolality Calculated 288 mOsm/kg (285-295); Potassium 3.8 mmol/L (3.5-5.1); Sodium 131 mmol/L (136-145); Total Bilirubin 1.1 mg/dL (0.15-1.2)
[2023-11-03 05:08] LABS: Influenza A by IFA negative (Negative); Influenza B by IFA negative (Negative); SARS Covid-2 Antigen negative (Negative)
[2023-11-03] MEDS: piperacillin-tazobactam 3.375 GM in sodium chloride 0.9% (plus) 50 ML IV (05:36)
[2023-11-03] MEDS: magnesium sulfate premix 1 GM/100 ML PIGGYBACK IV (06:02)
[2023-11-03 06:18] LABS: Reflex Lactate Order REFLEX LACTIC ORDERD
[2023-11-03 06:25] LABS: Troponin 5 2HR 52.96 ng/L (0-15)
[2023-11-03 06:35] LABS: Troponin 5 2HR Delta 19.96 ABS# (0-10)
--- NOTE | 2023-11-03 06:45 | CT_ITS ---
WS: [id number] CT ABDOMEN AND PELVIS NONCONTRAST HISTORY: Abdominal pain TECHNIQUE: Imaging performed through the abdomen and pelvis. Coronal and sagittal reformats are submi tted. All CT scans at [facility] use at least one of these dose optimization techniques: auto mated exposure control; mA and/or kV adjustment per patient size (includes targeted exams where dose is matched to clinical indication); or iterative reconstruction. DLP: 891.50 mGy.cm COMPARISON: Gallbladder ultrasound 10/17/2023 Lower thorax: Mild dependent changes at the lung bases. Tiny LEFT pleural effusion. Heart size is sli ghtly enlarged. Prior CABG. Very small hiatal hernia. Liver: Normal size liver. No mass or bile duct dilatation. Gallbladder: Normally distended gallbladder with numerous stones in the dependent portion. No adjacen t inflammation surrounding the gallbladder. No wall thickening. Pancreas: Markedly abnormal appearance of the pancreas. Pancreas is enlarged and edematous and poorly defined. Fluid collections and edema surrounding the pancreas. There is a large collection containin g air centered at the pancreatic head. This collection measures 6.1 x 5.5 cm. 2 additional ill-define d the collections anterior to the pancreatic head and neck are smaller. The largest measures 2.8 x 2. 4 cm. There is an additional more elongated collection extending inferior and to the RIGHT from the p ancreatic head. This collection also contains air and discontinuous with the pancreatic collection. T his is probably a large pseudocyst and the air suggest abscess formation and infection. This collecti on measures 3.6 x 11.0 cm. There are additional smaller ill-defined opacifications along with edema. Spleen: Normal. Adrenal glands: Normal. No mass. Right kidney: Normal size kidney. No obstruction. There is mild periureteral stranding which is proba reynaldo secondary to associated with the acute pancreatitis. Left kidney: No obstruction. Aorta: Mild atherosclerosis abdominal aorta with no aneurysm. No free fluid, intraperitoneal air or significant lymphadenopathy. GI tract: Stomach is not distended. Duodenal C-loop is inseparable from the acute pancreatitis. There is duodenal wall edema but no obstruction. No small bowel obstruction. No colon obstruction. Mild di verticulosis. Abdominal wall: Negative. No hernia. Pelvis: Urinary bladder is overly distended. Prostate gland is enlarged encroaching into the base of the bladder. No free fluid in the pelvis. Osseous structures: Unremarkable. CT/CT abdomen pelvis wo con [id number] IMPRESSION: 1. Advanced changes of acute pancreatitis. 2. Marked masslike enlargement of the pancreatic head containing air, most lik andreas necrotic pancreatitis/intrapancreatic infected pseudocyst measuring 6.1 x 5 .5 cm. 3. There is an additional fluid collection likely pseudocyst extending posteri or and to the RIGHT from the pancreatic head necrotic region. This collection c ontains air and is contiguous with the pancreatic head collection. Most consist ent with a pseudocyst. Likely infected due to the air. This collection measures 3.6 x 11.0 cm. 4. There are additional collections in the pancreatic tail and anterior to the pancreas and in the lesser curvature the stomach consistent with additional ps eudocyst. 5. Cholelithiasis without acute cholecystitis. 6. Secondary duodenitis. Notified Ramon Pastor DO at 11/03/2023 8:18 AM.
--- NOTE | 2023-11-03 06:50 | ECG_ITS ---
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 Measurements Intervals [place] Rate: 94 P: 0 NE: 0 QRS: -18 QRSD: 100 T: -13 QT: 363 QTc: 455 Interpretive Statements ATRIAL FIBRILLATION INCOMPLETE RIGHT BUNDLE BRANCH BLOCK [90+ ms QRS DURATION, TERMINAL R IN V1/V2, 40+ ms S IN I/aVL/V4/V5/V6] VOLTAGE CRITERIA FOR LVH [MEETS CRITERIA IN ONE OF: R(aVL), S(V1), R(V5), R(V5/V6)+S(V1)] Compared to ECG 11/03/2023 04:05:17 Incomplete right bundle-branch block now present ST (T wave) deviation no longer present Electronically Signed On 11-03-2023 17:27:45 CDT by Aris Lu M.D. [id number]
[2023-11-03 06:56] LABS: Lactic Acid level (Lactate) 1.4 mmol/L (0.5-2.2)
[2023-11-03 07:12] LABS: Lipase 48 U/L (13-60)
[2023-11-03 07:18] LABS: Digoxin 0.3 ng/mL (0.6-1.2)
[2023-11-03] MEDS: sodium chloride 0.9% 500 ML 167 ML IV (07:32)
--- NOTE | 2023-11-03 07:32 | DCPLANNER ---
message sent to [facility] for cardiology ref
--- NOTE | 2023-11-03 08:47 | PC.PHAR ---
pts and daughter verified pts medications-states the pt was just discharged from [facility]-states the pts amlodipine 10mg was dced a week ago-states the pts digoxin was changed 11/02/23 states the pt is now taking 62.5mcg states pt was on 125mcg daily-states the pt was on lasix 40mg daily and took yesterday 11/02/[address] then changed to lasix 20mg daily but states pt has not started 20mg daily as of 11/03/23-states the pt takes glipizide 5mg takes 1/2 tab (2.5mg)qam ext shows last filled 09/02/23 5mg bid-states the pts hctz 25mg daily was dced-states pt not started ramipril 1.25mg daily as of 11/03/23-states the pts valsartan 160mg daily was dced but was told to take a one time dose on thursday11/01/23-was discharged from [facility] with metoprolol tartrate 12.5mg bid states the pt now takes metoprolol tartrate 25mg bid states was just changed to 25mg bid 11/02/23 states pt had one dose 11/02/23 -notes are made in the pharmacy comments- states needs new rx for nitro-states the pt was on coq10 daily states the pt hasnt taken in 2 weeks
--- NOTE | 2023-11-03 09:48 | PC.NURSE ---
second bag of CBI hung
--- NOTE | 2023-11-03 10:11 | ECG_ITS ---
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 Measurements Intervals [place] Rate: 69 P: 0 [place]: 0 QRS: -16 QRSD: 95 T: -21 QT: 385 QTc: 413 Interpretive Statements ATRIAL FIBRILLATION MODERATE VOLTAGE CRITERIA FOR LVH, CONSIDER NORMAL VARIANT [MEETS CRITERIA IN ONE OF: R(aVL), S(V1), R(V5), R(V5/V6)+S(V1)] Compared to ECG 11/03/2023 06:50:02 Incomplete right bundle-branch block no longer present Electronically Signed On 11-03-2023 17:24:08 CDT by Aris Lu M.D. [id number]
--- OUTSIDE RECORDS SUMMARY | 2023-11-03 10:31 | XMS_ITS | Patient Health Record ---
Author Name Unknown Organization [facility] Address [address] [place] [address] [place], [place] [address] Care Team Providers Care Architecture Intern Name Role Phone Marquis LARKIN, Milena Primary Care Provider Unavailab Ramana Bates Unavailable [phone] Garrett Eng Unavailable [phone] Results Component Value Reference Range Notes PSA Diagnostic--[id number] Reviewed date:02/04/2023 08:56:54 PM Interpretation: Performing Lab: Notes/Report: Diagnosis Description: Elevated prostate specific antigen [PSA] PSA 10.71 .00-4.00 NG/ML PSA concentra tions, regardless of the value, should not be interpreted as definitive evidence for the presence or absence of prostate cancer. Lipase 38865 Reviewed date:10/19/2023 08:15:50 AM Interpretation: Performing Lab: Notes/Report: Lipase Serum 2325 73-393 UNIT/L Basic Metabolic Panel (BMP) 06583 Reviewed date:10/19/2023 08:15:50 AM Interpretation: Performing Lab: Notes/Report: Sodium 142 136-145 MMOL/L Potassium 4.6 3.5-5.1 MMOL/L Chloride 112 98-107 MMOL/L CO2 24.5 20.0-31.0 MMOL/L Glucose Serum 173 71-110 MG/DL Testing perfor med at [facility], [address] [place] [address] [place] [address]. CLIA ID#: [id number] BUN 36 7-21 MG/DL Creat 2.78 .57-1.17 MG/DL J-vdqafn-m-benzoquinon e imine (NAPQI) is a metabolite of acetaminophen, NAPQI concentrations of apparoximately 10 mg/L correlation to toxic levels of acetaminophen demonstrates a greater than or equil to 10% change in results. NAPQI concentrations greater than this may lead to falsely depressed results for patient samples. Use of this assay is not recommended for patients undergoing treatment with phenindione, due to the potential for falsely depressed results. GFR 23.6 Calculation per formed from GFR calculator provided by the National Kidney Foundation. Glomerular Filtration rate(GRF) is the best overall index of kidney function. Normal GFR varies according to age,sex, body size, and declines with age. The National Kidney Foundation recommends using the CKD-EPI Creatinine Equation(2020) to estimate GFR. Anion Gap 10 5-15 BUN/Creat Ratio 12.9 12.0-20.0 % Calcium 8.4 8.7-10.4 MG/DL Osmo Serum,Calculated 306 280-300 MOSM/KG Hepatic Function Panel [id number] Reviewed date:10/19/2023 08:15:50 AM Interpretation: Performing Lab: Notes/Report: Total Protein 5.8 5.8-8.0 G/DL Albumin 3.6 3.2-4.8 G/DL Bili Total 2.3 .3-1.2 MG/DL Use of this ass ay is not recommended for patients undergoing treatment with eltrombopag due to the potential for falsely elevated results. Bili Direct .90 .05-.40 MG/DL Alk Phos 136 46-116 AST/SGOT 54 15-37 UNIT/L ALT/SGPT 172 12-78 UNIT/L Culture Blood 78022 Reviewed date:10/26/2023 02:09:14 PM Interpretation: Performing Lab: Notes/Report: Culture Blood THEO Prather Culture Blood t: Culture Blood Culture Blood Accessio [id number] Culture Blood n: Culture Blood Microbiology Culture Blood PROCEDURE: Culture Blood [] Culture Blood SOURCE: Blood BODY SITE: Culture Blood COLLECTED DATE/TIME: 10/19/2023 10:24 CDT RECEIVED DATE/TIME: 10/19/2023 11:11 CDT Culture Blood START DATE/TIME: 10/19/2023 11:13 CDT FREE TEXT SOURCE: RIGHT HAND Culture Blood FINAL REPORT Culture Blood Final Report [] Culture Blood Verified Date/Time: 10/24/2023 05:25 CDT Culture Blood No growth at 5 days. Comprehensive Metabolic Pane nichole 74390 Reviewed date:10/20/2023 08:45:52 AM Interpretation: Performing Lab: Notes/Report: Glucose Serum 192 71-110 MG/DL Testing perfor med at [facility], [address] [place] [address] [place] [address]. CLIA ID#: [id number] BUN 56 7-21 MG/DL Creat 2.64 .57-1.17 MG/DL N-qjutgj-y-benzoquinon e imine (NAPQI) is a metabolite of acetaminophen, NAPQI concentrations of apparoximately 10 mg/L correlation to toxic levels of acetaminophen demonstrates a greater than or equil to 10% change in results. NAPQI concentrations greater than this may lead to falsely depressed results for patient samples. Use of this assay is not recommended for patients undergoing treatment with phenindione, due to the potential for falsely depressed results. GFR 25.2 Calculation per formed from GFR calculator provided by the National Kidney Foundation. Glomerular Filtration rate(GRF) is the best overall index of kidney function. Normal GFR varies according to age,sex, body size, and declines with age. The National Kidney Foundation recommends using the CKD-EPI Creatinine Equation(2020) to estimate GFR. BUN/Creat Ratio 21.2 12.0-20.0 % Total Protein 5.4 5.8-8.0 G/DL Albumin 3.3 3.2-4.8 G/DL Globulin 2.2 2.3-3.5 G/DL Alb/Glob 1.5 0.8-2.2 Calcium 7.6 8.7-10.4 MG/DL Sodium 142 136-145 MMOL/L Potassium 4.1 3.5-5.1 MMOL/L Chloride 114 98-107 MMOL/L CO2 21.5 20.0-31.0 MMOL/L Anion Gap 11 5-15 Alk Phos 82 46-116 Bili Total 1.7 .3-1.2 MG/DL Use of this ass ay is not recommended for patients undergoing treatment with eltrombopag due to the potential for falsely elevated results. AST/SGOT 23 15-37 UNIT/L ALT/SGPT 76 12-78 UNIT/L Osmo Serum,Calculated 315 280-300 MOSM/KG CRP 03162 Reviewed date:10/20/2023 08:45:52 AM Interpretation: Performing Lab: Notes/Report: CRP 28.77 .40-1.00 MG/DL CRP [id number] Reviewed date:10/21/2023 11:20:57 AM Interpretation: Performing Lab: Notes/Report: CRP 24.05 .40-1.00 MG/DL CBC w\o Diff 75963 Reviewed date:10/26/2023 02:09:14 PM Interpretation: Performing Lab: Notes/Report: WBC 13.0 4.5-11.0 X10'3 RBC 3.45 4.50-5.90 X10'6 Hgb 9.9 13.5-17.5 G/DL Hct 28.7 41.0-53.0 % MCV 83.2 80.0-100.0 FL MCH 28.7 27.0-31.0 PG MCHC 34.5 31.0-37.0 G/DL Platelet 142 150-400 X10'3 RDW-SD 40.2 35.0-49.0 FL RDW-CV 13.2 12.2-15.6 % MPV 10.6 9.2-12.0 FL CBC w\ Auto Diff [id number] Reviewed date:10/26/2023 02:09:14 PM Interpretation: Performing Lab: Notes/Report: WBC 13.1 4.5-11.0 X10'3 RBC 3.61 4.50-5.90 X10'6 Hgb 10.4 13.5-17.5 G/DL Hct 30.5 41.0-53.0 % MCV 84.5 80.0-100.0 FL MCH 28.8 27.0-31.0 PG MCHC 34.1 31.0-37.0 G/DL Platelet 142 150-400 X10'3 RDW-SD 40.8 35.0-49.0 FL RDW-CV 13.3 12.2-15.6 % MPV 10.5 9.2-12.0 FL Neutro Auto% 82.9 42.0-75.0 % Lymph Auto% 8.2 21.0-51.0 % [place] Auto% 7.0 1.7-9.3 % Eos Auto% .3 .0-6.0 Baso Auto% 0.2 0.0-1.0 Imm Gran% 1.4 .0-.4 % Neutro Abs 10.86 .80-7.70 Absolute Neutrophil Count 12508 Lymph Abs 1.07 .10-4.10 [place] Abs .92 .20-1.00 Eos Abs .04 .00-.40 Baso Abs .03 .00-.10 Imm Gran Abs .19 .00-.10 NRBC# .02 .00-.20 NRBC% .20 .00-.20 /100 intact WBC's MRI Abdomen MRCP w/o Cont-74 181 Reviewed date:10/19/2023 08:15:50 AM Interpretation: Performing Lab: Notes/Report: See Below For Report MRI Abdomen MRCP w/o Cont MRI Abdomen MRCP w/o Cont-74 181 Reviewed date:10/19/2023 08:15:50 AM Interpretation: Performing Lab: Notes/Report: [id number] Hepatic Function Panel [id number] Reviewed date:10/19/2023 08:15:50 AM Interpretation: Performing Lab: Notes/Report: Total Protein 6.3 5.8-8.0 G/DL Albumin 3.9 3.2-4.8 G/DL Bili Total 2.5 .3-1.2 MG/DL Use of this ass ay is not recommended for patients undergoing treatment with eltrombopag due to the potential for falsely elevated results. Bili Direct .90 .05-.40 MG/DL Alk Phos 161 46-116 AST/SGOT 75 15-37 UNIT/L ALT/SGPT 211 12-78 UNIT/L CBC w\ Auto Diff [id number] Reviewed date:10/19/2023 08:15:50 AM Interpretation: Performing Lab: Notes/Report: patients said to pull labs out of the picc line per Paresh called to confirm with Rn Rn said she doesnt believe patient has a picc line, but will double check and call lab back 10/18/2023 11:58:51 lparker WBC 19.0 4.5-11.0 X10'3 RBC 5.08 4.50-5.90 X10'6 Hgb 14.7 13.5-17.5 G/DL Hct 43.3 41.0-53.0 % MCV 85.2 80.0-100.0 FL MCH 28.9 27.0-31.0 PG MCHC 33.9 31.0-37.0 G/DL Platelet 175 150-400 X10'3 RDW-SD 42.5 35.0-49.0 FL RDW-CV 13.8 12.2-15.6 % MPV 10.3 9.2-12.0 FL Neutro Auto% 87.1 42.0-75.0 % Lymph Auto% 4.8 21.0-51.0 % [place] Auto% 6.3 1.7-9.3 % Eos Auto% 1.2 .0-6.0 Baso Auto% 0.2 0.0-1.0 Imm Gran% .4 .0-.4 % Neutro Abs 16.56 .80-7.70 Absolute Neutrophil Count 21837 Lymph Abs .91 .10-4.10 [place] Abs 1.19 .20-1.00 Eos Abs .23 .00-.40 Baso Abs .03 .00-.10 Imm Gran Abs .07 .00-.10 NRBC# .00 .00-.20 NRBC% .00 .00-.20 /100 intact WBC's Basic Metabolic Panel (BMP) [id number] Reviewed date:10/19/2023 08:15:50 AM Interpretation: Performing Lab: Notes/Report: Sodium 141 136-145 MMOL/L Potassium 4.3 3.5-5.1 MMOL/L Chloride 111 98-107 MMOL/L CO2 24.2 20.0-31.0 MMOL/L Glucose Serum 171 71-110 MG/DL Testing perfor med at [facility], [address] [place] [address] [place] [address]. CLIA ID#: [id number] BUN 29 7-21 MG/DL Creat 2.44 .57-1.17 MG/DL V-vqquwb-e-benzoquinon e imine (NAPQI) is a metabolite of acetaminophen, NAPQI concentrations of apparoximately 10 mg/L correlation to toxic levels of acetaminophen demonstrates a greater than or equil to 10% change in results. NAPQI concentrations greater than this may lead to falsely depressed results for patient samples. Use of this assay is not recommended for patients undergoing treatment with phenindione, due to the potential for falsely depressed results. GFR 27.7 Calculation per formed from GFR calculator provided by the National Kidney Foundation. Glomerular Filtration rate(GRF) is the best overall index of kidney function. Normal GFR varies according to age,sex, body size, and declines with age. The National Kidney Foundation recommends using the CKD-EPI Creatinine Equation(2020) to estimate GFR. Anion Gap 10 5-15 BUN/Creat Ratio 11.9 12.0-20.0 % Calcium 9.0 8.7-10.4 MG/DL Osmo Serum,Calculated 302 280-300 MOSM/KG UA Without Micro-Auto [id number] (Not yet reviewed by provider) Interpretation: Performing Lab: Notes/Report: Color yellow Clarity clear Glucose - Bili - Ketones - Sp [place] 1.020 Blood - pH 5.5 Protein - Urobili - Nitrites - Leukocytes - UA Without Micro-Auto 02812 (Not yet reviewed by provider) Interpretation: Performing Lab: Notes/Report: Color yellow Clarity clear Glucose - Bili - Ketones - Sp [place] 1.015 Blood - pH 5.5 Protein - Urobili -0.2 Nitrites - Leukocytes - Reason For Referral Reason Elevated PSA 12/17/22 Diagnosis 1 Elevated PSA (R97.20 ) Referring Provider First Name Milena Referring Provider Last Name Marquis Referring Provider Speciality Internal M edicine Ref[facility] [place] [facility] Referred Provider Garrett Eng Referred Address [address] [place] [phone], Referred Provider Specialty Urology Referral Priority Routine Medications Medication SIG (Take, Route, Frequency, Duration) Notes Start Date End Date Status Famotidine Active Aspirin Adult Low Dose 81 MG 1 tablet Or ally Once a day Active amLODIPine Besylate 10 MG 1 tablet Orall y Once a day Active hydroCHLOROthiazide Active Valsartan Active Atorvastatin Calcium Active Tamsulosin HCl 0.4 MG 1 capsule Orally O nce a day Active glipiZIDE 5 MG 1 tablet 30 minutes before breakfast Orally Once a day Active Problems Problem Type SNOMED Code ICD Code Onset Dates Problem Status W/U Status Risk Notes Problem Type II diabetes mellitus without complication (920207836) Type 2 diabetes mellitus without complications (E11.9) Active confirmed Problem 92880022 Essential (prima ry) hypertension (I10) Active confirmed Problem 22164673 Other obstructiv e and reflux uropathy (N13.8) Active confirmed Problem 895102217 Benign prostatic hyperplasia with lower urinary tract symptoms (N40.1) Active confirmed Problem 058769200 Elevated PSA (R97.20) Active confirmed Problem Atrial fibrillation (83594729) Atrial fibrillation (I48.91) Active confirmed Problem Hypertension (06913227) HTN (hypertension) (I10) Active confirmed Problem 914137801 CAD, multiple vessel (I25.10) Active confirmed Problem Atherosclerotic heart disease of [place] coronary artery without angina pectoris (346927645361451) Arteriosclerosis of coronary artery (I25.10) Active confirmed Problem Hyperlipidemia (07137992) Hyperlipidemia (E78.5) Active confirmed Problem 816072890 Symptomatic cholelithiasis (K80.20) Active confirmed Vital Signs Heart Rate 81 /min 01/28/2023 Temperature 97.9 degrees Fahrenheit 01/28/2023 Height-cm 175.26 cm 01/28/2023 Blood pressure diastolic 81 mm Hg 01/28/2023 Weight-kg 100.24 kg 01/28/2023 Height 69 in 01/28/2023 Blood pressure systolic 153 mm Hg 01/28/2023 Weight 221 lbs 01/28/2023 BMI 32.63 kg/m2 01/28/2023 Encounters Encounter Location Date Provider Diagnosis [facility] [place] [facility] [address] [place] [address], [place] [address] 12/17/2022 Garrett Eng Elevated PSA R97.20 ; Benign prostatic hyperplasia with lower urinary tract symptoms N40.1 and Other obstructive and reflux uropathy N13.8 [facility] [place] [facility] [address] [place] [address], [place] [address] 01/28/2023 Garrett Eng Elevated PSA R97.20 ; Benign prostatic hyperplasia with lower urinary tract symptoms N40.1 and Other obstructive and reflux uropathy N13.8 [facility] [place] [facility] [address] [place] [address] 11/02/2023 Ramana Felder [facility] [place] [facility] [address] [place] [address], [place] [address] 12/09/2022 Garrett Eng [facility] [place] [facility] [address] [place] [address] 10/29/2023 Ramana Felder Assessments Encounter Date Diagnosis (ICD Code) Assessment Notes Treat ment Notes Treatment Clinical Notes 12/17/2022 Benign prostatic hyperplasia with lower urinary tract symptoms (ICD-10 - N40.1) 12/17/2022 Elevated PSA (ICD-10 - R97.20) 01/28/2023 Elevated PSA (ICD-10 - R97.20) 12/17/2022 Other obstructive and reflux uropathy (ICD-10 - N13.8) 01/28/2023 Benign prostatic hyperplasia with lower urinary tract symptoms (ICD-10 - N40.1) 01/28/2023 Other obstructive and reflux uropathy (ICD-10 - N13.8) Plan Of Treatment Pending Test Test Name Order Date UA Without Micro-Auto [id number] 12/17/2022 UA Without Micro-Auto [id number] 01/28/2023 PSA Diagnostic--30403 12/17/2022 Future Test Test Name Order Date PSA Diagnostic--04143 04/30/2023 Next Appt Details Provider Name:Magaly bowles, 11/23/2023 11:00:00 AM, [address] [place] [address], [phone], Insurance Providers Payer Name Payer Address Payer Phone Subscriber Number Group Number Insured Name Patient Relationship to Insured Coverage Start Date Coverage End Date [facility] Medicare Advantage PPO [address] [address] [place] [address] [id number] Theo Krishna Self - patient is the insured Medical (General) History Medical History History ICD Code measles mumps chicken pox pneumonia heart disease diabetes Surgical History Surgery Date(Month/Year) Bypass
--- OUTSIDE RECORDS SUMMARY | 2023-11-03 10:31 | XMS_ITS ---
Author Name Jose Armando Mathews Address [address] [place] [address] Organization Unknown Address [address] [place] [address] ALLERGIES AND ADVERSE REACTIONS No information ASSESSMENT No information CHIEF COMPLAINT No information MEDICATIONS No information OBJECTIVE DATA No information PHYSICAL EXAMINATION No information TREATMENT PLAN Planned Care Start Date Provider Encounter for Check-up [id number] [facility] PROBLEMS No information RESULTS No information REVIEW OF SYSTEMS No information SUBJECTIVE DATA No information VITAL SIGNS No information
--- OUTSIDE RECORDS SUMMARY | 2023-11-03 10:32 | XMS_ITS | Patient Health Record ---
Author Name Unknown Organization [facility] Address [address] [facility] [place] [address] Care Team Providers Care Physicist Acoustics Name Role Phone Milena Cho Primary Care Provider JOSEPH Weston Unavailable [phone] TD MEJIA Unavailable [phone] Reason For Referral Reason Elevated PSA 12/17/22 Diagnosis 1 Elevated PSA (R97.20 ) Referring Provider First Name Milena Referring Provider Last Name Marquis Referred Organization [facility] Referred Provider JOSEPH ENG Referred Address [address] [facility],[place],[address], Referred Provider Specialty Urology General Notes Assign To :John Messer; Referral Priority Routine Medications Medication SIG (Take, Route, Frequency, Duration) Notes Start Date End Date Status Tamsulosin HCl 0.4 MG 1 capsule Orally Once a day Active glipiZIDE 5 MG 1 tablet 30 minutes before breakfast Orally Once a day Active Valsartan *Pick strength-form from Medispan for eRX* Active Aspirin Adult Low Dose 81 MG 1 tablet Orally Once a day Active Atorvastatin Calcium *Pick strength-form from Medispan for eRX* Active Famotidine *Pick strength-form from Medis[employer] for eRX* Active hydroCHLOROthiazide *Pick strength-form from [employer]is[employer] for eRX* Active amLODIPine Besylate 10 MG 1 tablet Orall y Once a day Active Problems Problem Type SNOMED Code ICD Code Onset Dates Problem Status W/U Status Risk Notes Problem [id number] Other obstructive and reflux uropathy (N13.8) Active confirmed Problem [id number] Benign prostatic hyperplasia with lower urinary tract symptoms (N40.1) Active confirmed Problem 930014412 Elevated PSA (R97.20) Active confirmed Vital Signs Heart Rate 73 /min 05/21/2023 Temperature 97.7 degrees Fahrenheit 05/21/2023 Height-cm 175.26 cm 05/21/2023 171 Blood pressure diastolic 91 mm Hg 05/21/2023 Weight-kg 100.24 kg 05/21/2023 Height 69 in 05/21/2023 Blood pressure systolic 171 mm Hg 05/21/2023 Weight 221 lbs 05/21/2023 BMI 32.63 kg/m2 05/21/2023 Encounters Encounter Location Date Provider Diagnosis [facility], [facility] [address] [facility] [address] [facility] [place] [address] 06/17/2023 JOSEPH ENG [facility], [facility] [address] [place] [address] 12/17/2022 JOSEPH ENG Elevated PSA R97.20 ; Benign prostatic hyperplasia with lower urinary tract symptoms N40.1 and Other obstructive and reflux uropathy N13.8 [facility], [facility] [address] [facility] [place] [address] 01/28/2023 JOSEPH ENG Elevated PSA R97.20 ; Benign prostatic hyperplasia with lower urinary tract symptoms N40.1 and Other obstructive and reflux uropathy N13.8 [employer], [facility] [address] [facility] [place] [address] 05/21/2023 TD MEJIA Elevated PSA R97.20 ; Benign prostatic hyperplasia with lower urinary tract symptoms N40.1 and Other obstructive and reflux uropathy N13.8 [facility], [facility] [address] [facility] [place] [address] 12/09/2022 JOSEPH ENG Assessments Encounter Date Diagnosis (ICD Code) Assessment Notes Treatment Notes Treatment Clinical Notes 12/17/2022 Benign prostatic hyperplasia with lower urinary tract symptoms (ICD-10 - N40.1) 12/17/2022 Elevated PSA (ICD-10 - R97.20) 01/28/2023 Elevated PSA (ICD-10 - R97.20) 05/21/2023 Elevated PSA (ICD-10 - R97.20) 05/21/2023 Benign prostatic hyperplasia with lower urinary tract symptoms (ICD-10 - N40.1) 12/17/2022 Other obstructive and reflux uropathy (ICD-10 - N13.8) 01/28/2023 Benign prostatic hyperplasia with lower urinary tract symptoms (ICD-10 - N40.1) 01/28/2023 Other obstructive and reflux uropathy (ICD-10 - N13.8) 05/21/2023 Other obstructive and reflux uropathy (ICD-10 - N13.8) 05/21/2023 Other PSA elevation t o 11.64 from 10.7 in 01/2023. He has never had a prostate biopsy, last MRI was PIRADS 2. We have discussed scheduling for biopsy vs repeat MRI. Patient elects for repeat MRI, but understands that regardless of MRI if his PSA continues to increase a biopsy will be recommended and understands that malignancy can be missed without a biopsy. Patient will obtain new imaging, then RTC In 3-4 weeks for review with Dr. Eng. Patient states he is retiring in November 2023 and would like to avoid any surgeries until then. All questions that were asked were answered. Patient is satisfied with plan of care. Plan Of Treatment Pending Test Test Name Order Date BUN, Creatinine 05/21/2023 UA Without Micro-Auto [id number] 12/17/2022 UA Without Micro-Auto [id number] 01/28/2023 PSA Diagnostic--[id number] 12/17/2022 Future Test Test Name Order Date PSA Diagnostic--[id number] 04/30/2023 Insurance Providers Payer Name Payer Address Payer Phone Subscriber Number Group Number Insured Name Patient Relationship to Insured Coverage Start Date Coverage End Date [facility] Medicare Advantage PPO [address] [address] [place], [place] [id number] [phone] [id number] Theo Krishna Self - patient is the insured Medical (General) History Medical History History ICD Code measles mumps chicken pox pneumonia heart disease diabetes Surgical History Surgery Date(Month/Year) Bypass
[2023-11-03 10:47] LABS: Troponin 5 6HR 49.06 ng/L (0-15)
[2023-11-03 11:07] LABS: Troponin 5 6HR Delta 16.06 ng/L (0-12)
[2023-11-03 11:33] LABS: Adenovirus Not Detected (NOT DETECT); Chlamydia Pneumoniae Not Detected (NOT DETECT); Coronavirus 229E,HKU1,NL63,OC4 Not Detected (NOT DETECT); Human Metapneumovirus Not Detected (NOT DETECT); Human Rhinovirus/Enterovirus Not Detected (NOT DETECT); Influenza A Not Detected (NOT DETECT); Influenza A H1 Not Detected (NOT DETECT); Influenza A H1-2009 Not Detected (NOT DETECT); Influenza A H3 Not Detected (NOT DETECT); Influenza B Not Detected (NOT DETECT); Mycoplasma Pneumoniae Not Detected (NOT DETECT); Parainfluenza Virus Type 1 Not Detected (NOT DETECT); Parainfluenza Virus Type 2 Not Detected (NOT DETECT); Parainfluenza Virus Type 3 Not Detected (NOT DETECT); Parainfluenza Virus Type 4 Not Detected (NOT DETECT); Respiratory Syncytial Virus A Not Detected (NOT DETECT); Respiratory Syncytial Virus B Not Detected (NOT DETECT); SARS-COV-2 Not Detected (NOT DETECT)
--- NOTE | 2023-11-03 12:41 | P.CONIM_ITS ---
Providers/Reason For Consult 2 Consulting Physician/Specialty*: Dr. Wall/internal medicine Reason for Consult*: Sepsis, A-fib, congestive heart failure Attending Physician: Smith Wall MD Primary Care Provider: Milena Cho MD History of Present Illness History of Present Illness Theo Krishna is a 68 year old male who was recently in the ER 2 weeks ago and was transferred to [facility] for gallstone pancreatitis. As per the daughter who was at bedside patient did not undergo ERCP at [place] but hospitalization was complicated by him developing acute renal failure, new diagnosis of congestive heart failure with EF of around 35% and A-fib. Patient was discharged on 10/24. Since his discharge he has been at his baseline with episodes of mild nausea, poor appetite no abdominal pain. Since his discharge he was also increased on his diuretics after which he lost around 29 pounds as per the daughter. Overnight patient had episode of high-grade fever at home along with tachycardia with heart rate going up to 180s and difficulty in breathing along with abdominal discomfort and nausea for the presented to the ER. In the ER patient was found to be mildly tachycardic with borderline blood pressures for which she received Cardizem and slow bolus of IV fluids. On examination patient's heart rate was in 70s with blood pressure 125/70, saturating well on room air. Review of Systems 2 General: Reports: 10 or more systems reviewed and unremarkable except in HPI and below Const: Denies: fever(s), chills, body aches, change in appetite, change in weight, malaise, night sweats, diaphoresis, change in sleep pattern, daytime sleepiness or snoring Eyes: Denies: change in vision, blurry vision, photophobia, eye discomfort or eye discharge ENMT: Denies: throat pain, enlarged tonsils, hoarseness, mouth pain, oral sores, dry mouth, tinnitus, nasal congestion or post nasal drip Card: Denies: chest pain, palpitations, irregular heart rhythm, edema, swelling of feet/ankles, lightheadedness, syncope, pre-syncope, dyspnea on exertion, orthopnea, leg pain with exertion or acrocyanosis Resp: Denies: dyspnea, productive cough, non-productive cough, wheezing, stridor, pain on inspiration, change in phlegm color, hemoptysis or chest congestion GI: Denies: abdominal pain, nausea, vomiting, hematemesis, coffee ground emesis, dysphagia, heartburn, diarrhea, constipation, bloating, GI cramping, change in bowel habits, pain on defecation, hematochezia or melena : Denies: flank pain, difficulty urinating, dysuria, urinary frequency, urinary urgency, urinary hesitancy, urinary dribbling, difficulty starting urination, change in urine stream, nocturia or hematuria Musc: Denies: neck pain, back pain, extremity pain, joint pain, joint swelling, joint redness, joint stiffness or limited range of motion Neuro: Denies: headache(s), numbness in extremities, weakness in extremities, sensory changes, lack of coordination, difficulty walking, frequent falls, dizziness, vertigo, confusion, Slurred speech present, difficulty communicating thoughts or seizure-like activity Psych: Denies: anxiety, depression, mood swings, panic attacks, hopelessness or irritability Endo: Denies: polyuria, polydipsia, tired all the time, cold intolerance, excessive sweating, flushing or heat intolerance Kareem/Lymph: Denies: easy bruising or easy bleeding All/Imm: Denies: tongue swelling, facial swelling or acute wheezing Medications/Allergies Home Medications Medication Instructions Recorded Confirmed Last Taken Type metoprolol tartrate 25 mg tablet 25 mg PO BID 09/24/20 11/03/23 Unknown History atorvastatin 40 mg tablet 40 mg PO QPM 10/10/21 11/03/23 Unknown History tamsulosin 0.4 mg capsule 0.8 mg PO QPM 10/10/21 11/03/23 Unknown History valsartan 160 mg tablet 160 mg PO .ONE TIME DOSE SUN 10/10/21 11/03/23 11/01/23 History took one time dose apixaban 5 mg tablet (Eliquis) 5 mg PO BID 11/03/23 11/03/23 Unknown History digoxin 125 mcg (0.125 mg) tablet 62.5 mcg PO QAM 11/03/23 11/03/23 11/02/23 History 125 mcg finasteride 5 mg tablet 5 mg PO QAM 11/03/23 11/03/23 Unknown History furosemide 20 mg tablet 20 mg PO DAILY 11/03/23 11/03/23 Unknown History furosemide 40 mg tablet 40 mg PO DAILY 11/03/23 11/03/2324 History glipizide 5 mg tablet 2.5 mg PO QAM 11/03/23 11/03/23 Unknown History nitroglycerin 0.4 mg sublingual 0.4 mg sublingual Q5M PRN Chest 11/03/23 11/03/23 Unknown History tablet (Nitrostat) Pain pantoprazole 40 mg tablet,delayed 40 mg PO QAM 11/03/23 11/03/23 Unknown History release vit no.95-ferrous 1 tab PO DAILY PRN unknown 11/03/23 11/03/23 Unknown History fumarate 28 mg-folic acid 800 mcg tablet ( Multivitamins) ramipril 1.25 mg capsule 1.25 mg PO DAILY 11/03/23 11/03/23 Unknown History saw palmetto 500 mg capsule 1,000 mg PO DAILY 11/03/23 11/03/23 11/01/23 History Allergies Allergy/AdvReac Type Severity Reaction Status Date / Time No Known Allergies Allergy Verified 11/03/23 04:13 PFSH Acute 2 PFSH: Medical History (Updated 11/03/23 @ 14:24 by Smith Wall MD) History of nonmelanoma skin cancer ASHD (arteriosclerotic heart disease) Insomnia Bilateral plantar fasciitis Cataract Dyslipidemia Hypertension Diabetes Elevated PSA BPH loc w urin obs/LUTS Surgical History Hx of CABG Status post bilateral LASIK surgery Family History Mother Hypertension Other CAD (coronary artery disease) Social History Smoking and tobacco/nicotine status: never used tobacco/nicotine Alcohol intake: never Marital status: Current occupational status: employed Vitals/I&O/Wt Last Vital Signs Temp 97.8 F 11/03/23 07:41 Pulse 75 11/03/23 10:54 Resp 16 11/03/23 10:54 BP 125/73 11/03/23 10:54 Pulse Ox 95 11/03/23 10:54 O2 Del Method Room Air 11/03/23 10:54 Weight last 48 hrs Weight 97.522 kg Physical Exam 2 Narrative: General: No acute distress, AO x3, sick appearing HEENT: PERRLA, pupils bilaterally equal and reactive Chest: Normal vesicular breath sounds, no added sounds, equal good air entry bilaterally CVS: S1-S2 irregularly irregular, no murmurs, no tachycardia, no gallops, no rubs Abdomen: Soft, distended, mild guarding, generalized tenderness more so in right upper quadrant and epigastric, bowel sounds present but sluggish Neuro: No focal deficits, no facial deformity, AO x3, power 5/5 in all limbs Data 11/03/23 04:09 11/03/23 04:09 Micro: Microbiology 11/03/23 05:55 Blood Culture - Preliminary Blood SPECIMEN COLLECTED 11/03/23 05:50 Blood Culture - Preliminary Blood SPECIMEN COLLECTED A&P Assessment and plan (1) Sepsis: SIRS: Tachycardic, Febrile, Leukocytosis Source: Intra-abdominal collection versus abscess secondary to necrotizing pancreatitis End organ damage: Acute kidney injury Lactic acid elevated Patient did not receive full 30 mL/kg BW due to recent history of congestive heart failure with EF of 35% Monitor blood pressures. Keep mean artery pressure 65 mmHg. Blood culture, urine culture, MRSA swab, procalcitonin, urine Legionella, bacterial antigen. IV antibiotics with vancomycin and Zosyn for now. (2) Acute necrotizing pancreatitis: As seen on CT abdomen pelvis with concerns for masslike enlargement of pancreatic head containing air along with concerns for infected pseudocyst measuring 6.5 x 5.5 cm along with further additional collections. [place]'s admission score of 3, [place] MAR pancreatitis score of 4 concerning for severe pancreatitis with high chances of mortality. Keep NPO. Gentle IV hydration as possible watching for fluid overload. Given the concerns for infected collection patient needs IR drainage versus abdominal wash. Care discussed in detail with IR and surgical team tombstone polisher. As per both the services unfortunately [facility] does not carry the expertise and equipments needed for IR drainage or abdominal wash and patient needs specialized care with gastroenterology and IR. (3) Acute kidney injury: In setting of aggressive diuresis and sepsis as above. Gentle IV hydration. Medical reconstruction done for nephrotoxic drugs. Hold off on diuresis for now. Will try to switch from MEY and ARB to amlodipine as needed. (4) Atrial fibrillation with rapid ventricular response: Currently rate controlled now. Monitor digoxin levels. Continue with home dose of digoxin if levels are appropriate. Switch from Eliquis to full dose anticoagulation with heparin given possible need of IR drainage. (5) CHF (congestive heart failure): Currently euvolemic. Strict input charting, daily weights. Hold off on diuretics. Gentle IV hydration as above. Qualifiers: Heart failure chronicity: unspecified Heart failure type: unspecified Qualified Code(s): I50.9 - Heart failure, unspecified (6) Hyponatremia: Gentle hydration as above. Monitor daily. (7) Elevated troponin: (8) Pancreatic pseudocyst: Plan Patient is clinically sick. As stated above patient needs transferred to a higher tertiary center where there is a body sander or IR available for abdominal washout versus IR drainage of the intra-abdominal collections. Patient will need to be transferred. Discussed in detail with surgical team, IR team, ER physician. Patient and family are agreeable for transfer to a higher center as needed. Consult Attestations 2 Medical Necessity Statement: Needs transfer to a higher center for care through different specialties including gastroenterology and IR Critical Care Time: The high probability of a clinically significant, sudden or life threatening deterioration of the patient's [ID, GI, cardiac, goals of care] system(s) required my full and direct attention, intervention and personal management. The critical care time is as shown. This time is in addition to time spent performing any reported procedures but includes the following: [x] Data and vital sign review and interpretation [x] Patient assessment, examination and intervention [x] Documentation [x] Medication orders and management Critical Care Time (min): 60 Coding Level of Care Code Critical Care >/= 30 minutes Critical care time (in minutes): 60 The high probability of a clinically significant, sudden or life threatening deterioration, as referenced in this documentation, required my full and direct attention, intervention and personal management. The critical care time shown is in addition to time spent performing any reported separately billable procedures and includes the following: [x] Data and vital sign review and interpretation [x ] Patient assessment, examination and intervention [x] Medication orders and management [x] Patient/Family updates as able [x] Care Coordination and Documentation. Diagnoses Sepsis A41.9 Acute necrotizing pancreatitis K85.91 Acute kidney injury N17.9 Atrial fibrillation with rapid ventricular response I48.91 CHF (congestive heart failure) I50.9 Heart failure chronicity: unspecified Heart failure type: unspecified Hyponatremia E87.1 Elevated troponin R79.89 Pancreatic pseudocyst K86.3
[2023-11-03] MEDS: vancomycin 1,250 MG/250 ML PIGGYBACK 250 MG IV (12:53)
[2023-11-03] MEDS: D5-NS 0.45% + KCL 20 mEq 20 MEQ/1,000 ML BAG 125 MEQ IV (15:28)
== END 2023-11-03 17:53 | disposition admitted as inpatient to this hospital (09) ==
PROVIDERS: Emergency Medicine; Emergency Provider Family Medicine; PCP Internal Medicine; Visit Provider Student in an Organized Health Care Education/Training Program
DX: A41.9 Sepsis, unspecified organism (principal); R50.9 Fever, unspecified; I48.20 Chronic atrial fibrillation, unspecified; I11.0 Hypertensive heart disease with heart failure; I50.9 Heart failure, unspecified; R79.89 Other specified abnormal findings of blood chemistry; E78.5 Hyperlipidemia, unspecified; E11.9 Type 2 diabetes mellitus without complications; Z95.1 Presence of aortocoronary bypass graft; Z11.52 Encounter for screening for COVID-19
CPT/HCPCS: 36415; 71045; 74176; 80053; 80162; 81001; 83605; 83690; 83735; 83880; 84145; 84484; 85025; 85610; 87040; 87426; 87486; 87581; 87633; 87804; 93005; 96374; 96375; 99285; J2543; J3370; J3475; J3490; J7040

== ENCOUNTER → 2024-05-02 14:08 | Outpatient (BNVA) | payer MEDICARE, SELFPAY | PROVIDERS: PCP Internal Medicine; Visit Provider Nurse Practitioner Family | DX: L82.1 Other seborrheic keratosis (principal); L57.8 Other skin changes due to chronic exposure to nonionizing radiation; D22.5 Melanocytic nevi of trunk; L81.4 Other melanin hyperpigmentation; L56.5 Disseminated superficial actinic porokeratosis (DSAP) | CPT/HCPCS: 17000; 99213 ==